=== PATIENT | female | born 1970 | race Two or more races ===

== ENCOUNTER → 2016-11-18 | Outpatient (REF) | payer OTHER | LOC: M SFHCLERA 17:06 | PROVIDERS: ATTEND Nurse Practitioner Family | DX: R35.0 Frequency of micturition (principal) ==

== ENCOUNTER → 2019-05-30 | Outpatient (REF) | payer OTHER ==
[2019-05-30 13:35] LABS: BASO # 0.1 10^3/uL (0.0-0.2); BASO % 0.7 % (0.0-1.0); EOS # 0.1 10^3/uL (0.0-0.5); EOS % 1.1 % (0.0-3.0); HEMATOCRIT 42.1 % (36.0-47.0); LYMPH % 28.9 % (24.0-44.0); MEAN CORPUSCULAR HEMOGLOBIN 32.5 pg (27.0-33.0); MEAN CORPUSCULAR HGB CONC 33.3 g/dl (32.0-36.5); MEAN CORPUSCULAR VOLUME 97.7 fl (80.0-96.0); MONO # 0.8 10^3/uL (0.0-0.8); MONO % 7.9 % (0.0-5.0); NEUTROPHILS # 6.3 10^3/uL (1.5-8.5); NEUTROPHILS % 61.1 % (36.0-66.0); PLATELET COUNT, AUTOMATED 329 10^3/uL (150-450); RED BLOOD COUNT 4.31 10^6/uL (4.00-5.40); WHITE BLOOD COUNT 10.3 10^3/uL (4.0-10.0)
[2019-05-30 13:47] LABS: ALBUMIN 3.5 GM/DL (3.2-5.2); ALT/SGPT 22 U/L (12-78); BILIRUBIN,TOTAL 0.3 MG/DL (0.2-1.0); BLOOD UREA NITROGEN 14 MG/DL (7-18); CALCIUM LEVEL 9.1 MG/DL (8.5-10.1); CARBON DIOXIDE LEVEL 27 MEQ/L (21-32); CHLORIDE LEVEL 108 MEQ/L (98-107); CHOLESTEROL LEVEL 198 MG/DL (<200); CREATININE FOR GFR 0.63 MG/DL (0.55-1.30); FREE T4 0.86 NG/DL (0.76-1.46); GLOMERULAR FILTRATION RATE > 60.0 (>51); GLUCOSE, FASTING 84 MG/DL (70-100); HDL CHOLESTEROL 38 MG/DL (>40); LDL CHOLESTEROL 84 MG/DL (<100); NON-HDL-C 160 MG/DL; POTASSIUM SERUM 4.3 MEQ/L (3.5-5.1); SODIUM LEVEL 143 MEQ/L (136-145); TOTAL PROTEIN 6.9 GM/DL (6.4-8.2); TRIGLYCERIDES LEVEL 378 MG/DL (<150)
== END ==
LOC: M LABDRWAD 12:12
PROVIDERS: ATTEND Physician Assistant
DX: Z13.29 Encounter for screening for other suspected endocrine disorder (principal); E03.9 Hypothyroidism, unspecified; Z13.220 Encounter for screening for lipoid disorders

== ENCOUNTER 2020-02-01 17:50 | Observation (INO) | payer OTHER ==
[~2020-02-01] VITALS: Ht 165.1 cm; Wt 111.6 kg
[2020-02-01] MEDS ORDERED: LEVO137T2 PO (17:58)
[2020-02-01] MEDS ORDERED: NS 1,000 ML IV ONE (18:30)
[2020-02-01 19:00] LABS: BASO # 0.1 10^3/uL (0.0-0.2); BASO % 0.5 % (0.0-1.0); EOS # 0.1 10^3/uL (0.0-0.5); EOS % 0.9 % (0.0-3.0); HEMATOCRIT 39.9 % (36.0-47.0); HEMOGLOBIN 13.5 g/dl (12.0-15.5); LYMPH # 2.7 10^3/uL (1.5-5.0); LYMPH % 25.2 % (24.0-44.0); MEAN CORPUSCULAR HEMOGLOBIN 31.3 pg (27.0-33.0); MEAN CORPUSCULAR HGB CONC 33.8 g/dl (32.0-36.5); MEAN CORPUSCULAR VOLUME 92.6 fl (80.0-96.0); MONO # 0.6 10^3/uL (0.0-0.8); MONO % 5.7 % (0.0-5.0); NEUTROPHILS # 7.1 10^3/uL (1.5-8.5); NEUTROPHILS % 67.3 % (36.0-66.0); PLATELET COUNT, AUTOMATED 300 10^3/uL (150-450); RED BLOOD COUNT 4.31 10^6/uL (4.00-5.40); WHITE BLOOD COUNT 10.6 10^3/uL (4.0-10.0)
[2020-02-01 19:20] LABS: INR 0.97; PARTIAL THROMBOPLASTIN TIME 30.1 SECONDS (25.0-38.4); PROTHROMBIN TIME 12.6 SECONDS (11.8-14.0)
[2020-02-01 19:30] LABS: ERYTHROCYTE SEDIMENTATION RATE 21 mm/hr (0-30)
[2020-02-01 19:33] LABS: ALBUMIN 3.7 GM/DL (3.2-5.2); ALT/SGPT 22 U/L (12-78); BILIRUBIN,DIRECT < 0.1 MG/DL (0.0-0.2); BILIRUBIN,TOTAL 0.3 MG/DL (0.2-1.0); C REACTIVE PROTEIN QUANTITATIV 0.32 MG/DL (0.00-0.30); FREE T4 1.29 NG/DL (0.76-1.46); LIPASE 60 U/L (73-393); NT-PRO BNP 49 PG/ML (<125); TOTAL PROTEIN 7.4 GM/DL (6.4-8.2)
[2020-02-01 20:31] LABS: D-DIMER QUANT 510.35 ng/ml (<500)
[2020-02-01] MEDS ORDERED: METOCLOPRAMIDE INJ 10MG/2ML VIAL (J2765 PER 1) As Ordered ONE (20:49)
[2020-02-01] MEDS ORDERED: ISOVUE-370 76% 100ML VIAL As Ordered ONE (20:56)
[2020-02-01] MEDS ORDERED: METOCLOPRAMIDE INJ 10MG/2ML VIAL (J2765 PER 1) IV ONE (21:00)
--- NOTE | 2020-02-01 21:42 | REPVR ---
PROCEDURE INFORMATION: Exam: CT Cervical Spine Without Contrast Exam date and time: 02/01/2020 9:25 PM Age: 49 years old Clinical indication: Other: Presyncope TECHNIQUE: Imaging protocol: Computed tomography images of the cervical spine without contrast. Axial, coronal and sagittal reformatted images were created and reviewed. Radiation optimization: All CT scans at this facility use at least one of these dose optimization techniques: automated exposure control; mA and/or kV adjustment per patient size (includes targeted exams where dose is matched to clinical indication); or iterative reconstruction. COMPARISON: No relevant prior studies available. FINDINGS: Vertebrae: Straightening of the normal cervical lordosis. Alignment anatomic. Mild dextroscoliosis. Congenital nonunion of the C1 posterior arch. No CT evidence of acute fracture, dislocation or subluxation. Vertebral body heights maintained. Discs/Spinal canal/Neural foramina: Intervertebral disc spaces preserved. No significant spinal canal or neural foraminal stenosis. Soft tissues: Grossly unremarkable. Lungs: Grossly unremarkable. IMPRESSION: 1. No CT evidence of acute cervical spine traumatic injury. 2. Additional findings, as above. Electronically signed by: Danny Shields On 02/01/2020 21:41:58 PM
--- NOTE | 2020-02-01 21:44 | REPVR ---
PROCEDURE INFORMATION: Exam: CT Head Without Contrast Exam date and time: 02/01/2020 9:25 PM Age: 49 years old Clinical indication: Other: Presyncope TECHNIQUE: Imaging protocol: Computed tomography of the head without contrast. Axial and coronal reformatted images were created and reviewed. Radiation optimization: All CT scans at this facility use at least one of these dose optimization techniques: automated exposure control; mA and/or kV adjustment per patient size (includes targeted exams where dose is matched to clinical indication); or iterative reconstruction. COMPARISON: No relevant prior studies available. FINDINGS: Brain: No CT evidence of acute intracranial hemorrhage or acute territorial infarction. No significant mass effect or midline shift. Basal cisterns patent. Ventricles: Normal in size and configuration. Bones/joints: No acute osseous abnormality. Sinuses: Grossly unremarkable. Mastoid air cells: Grossly unremarkable. Soft tissues: Grossly unremarkable. IMPRESSION: No CT evidence of acute intracranial pathology. Electronically signed by: Danny Shields On 02/01/2020 21:43:48 PM
--- NOTE | 2020-02-01 21:45 | REPVR ---
PROCEDURE INFORMATION: Exam: CT Angiography Chest With Contrast Exam date and time: 02/01/2020 9:25 PM Age: 49 years old Clinical indication: Other: Presyncope TECHNIQUE: Imaging protocol: Computed tomographic angiography of the chest with intravenous contrast. 3D rendering: MIP and/or 3D reconstructed images were created by the technologist. Radiation optimization: All CT scans at this facility use at least one of these dose optimization techniques: automated exposure control; mA and/or kV adjustment per patient size (includes targeted exams where dose is matched to clinical indication); or iterative reconstruction. Contrast material: ISOVUE 370; Contrast volume: 75 ml; Contrast route: IV; COMPARISON: CR PORTABLE CHEST X-RAY 02/01/2020 6:30 PM FINDINGS: Pulmonary arteries: Peripheral pulmonary artery evaluation limited by cardiac and respiratory motion artifact. Central pulmonary arteries show no intraluminal defect suggestive of clot. Aorta: No thoracic aortic aneurysm or dissection. Lungs: Pulmonary vascular/interstitial pattern does not suggest active pulmonary edema. No suspicious lung mass or air space process. No central endobronchial lesion. Pleural space: No pleural effusion or pneumothorax. Heart: Multi-chamber cardiac dilatation is noted. No evidence of acute pulmonary edema. Lymph nodes: No enlarged lymph nodes. Bones/joints: Bony structures show no acute fracture or destructive process. IMPRESSION: 1. No evidence of acute, central pulmonary embolus. Peripheral pulmonary arterial evaluation is limited by cardiac and respiratory motion artifact. 2. No other acute or concerning focal intrathoracic abnormality. 3. Cardiac enlargement without evidence of active pulmonary edema Electronically signed by: Yves De Leon On 02/01/2020 21:44:55 PM
[2020-02-01] MEDS ORDERED: CETI10CA2 PO (23:12)
[2020-02-01] MEDS ORDERED: ACETAMINOPHEN TAB 650MG DOSE (2X325MG) PO PRN (23:30)
[2020-02-01] MEDS ORDERED: DIVALPROEX 500MG *ER* TAB PO ONE (23:30)
[2020-02-01] MEDS ORDERED: NS 1,000 ML IV SCH (23:30)
[2020-02-01] MEDS ORDERED: ONDANSETRON 4MG/2ML VIAL IV PRN (23:30)
[2020-02-01] MEDS ORDERED: MECLIZINE 25 MG TABLET PO PRN (23:30)
--- NOTE | 2020-02-01 23:36 | HPEPDOC ---
General Date of Admission February 01, 2020 at 17:51 Date of Service: February 01, 2020 Chief Complaint The patient is a 49-year-old female admitted with a reason for visit of Pre Syncope. Source: Patient Exam Limitations: No limitations Timing/Duration: Other (few days) Severity: Other (, not applicable) Associated Symptoms: Other (or feeling of dizziness) History of Present Illness This is a 49 years old female with past medical history of hypothyroidism, had developed a feeling of dizziness and like writing on a roller coaster when she tries to lay down since last few days but today she also developed headache which is a pressure-like in nature present. Frontal and occipital area, no association with blurring of vision, nausea, vomiting, loss, or weakness of muscles or sensory system. . She was told by her primary care physician to come to ER if symptoms get worse, patient's headache has significantly resolved with metoclopramide and she is awaiting a MRA of brain and carotid and neurology consult. Dr. James has spoken with Dr. Hernández from neurology and he has recommended further workup as well as give patient Depakote ER 500 mg by mouth tonight Home Medications Scheduled Cetirizine HCl (ZyrTEC) 10 Mg Capsule, 10 MG PO DAILY, (Reported) Levothyroxine Sodium (Levothyroxine Sodium) 137 Mcg Tablet, 137 MCG PO DAILY, (Reported) Allergies Coded Allergies: No Known Allergies (Unverified , 02/01/20) Past Medical History Medical History Hypothyroidism Surgical History , Family History Family history reviewed, noncontributory Social History * Smoker: Denies Alcohol: Denies Drugs: denies A-FIB/CHADSVASC A-FIB History Current/History of A-Fib/PAF?: No Review of Systems Constitutional: Reports: Other Eyes: Denies: Pain, Vision change, Conjunctivae inflammation, Eyelid in flammation, Redness, Other ENT: Denies: Head Aches, Ear Pain, Dysphagia, Sinus Congestion, Post Nasal Drip, Sore Throat, Epistaxis, Other Symptoms Pulmonary: Denies: Dyspnea, Cough, Pleuritic Chest Pain, Other Symptoms Cardiovascular: Denies: Chest Pain, Palpitations, Orthopnea, Paroxysmal Noc. Dyspnea, Edema, Lt Headedness, Other Symptoms Gastrointestinal: Denies: Nausea, Vomiting, Abdominal Pain, Diarrhea, Constipation, Melena, Hematochezia, Other Symptoms Genitourinary: Denies: Dysuria, Frequency, Incontinence, Hematuria, Retention, Other Symptoms Musculoskeletal: Denies: Neck Pain, Back Pain, Shoulder Pain, Arm Pain, Hand Pain, Leg Pain, Foot Pain, Joint Pain, Muscle Pain, Spasms, Other Symptoms Neurological: Reports: Other Symptoms (. Dizziness) Psych: Denies: Mood Normal, Anxiety, Depression, Memory Issues, Thoughts of Self Harm, Anger, Thoughts of Harming Other, Other Psych Physical Examination General Exam: Positive: Alert, Cooperative Eye Exam: Positive: PERRLA, Conjunctiva & lids normal ENT Exam: Positive: Atraumatic Neck Exam: Positive: Supple Chest Exam: Positive: Clear to auscultation, Normal air movement Heart Exam: Positive: Rate Normal, Normal S1 Abdomen Exam: Positive: Normal bowel sounds, Soft Extremity Exam: Positive: Normal pulses Skin Exam: Positive: Nl turgor and temperature Neuro Exam: Positive: Strength at 5/5 X4 ext, Sensation Intact, Cranial Nerves 3-12 NL Psych Exam: Positive: Mood NL, Oriented x 3 Vital Signs Vital Signs Date Time Temp Pulse Resp B/P (MAP) Pulse Ox O2 Delivery O2 Flow Rate FiO2 02/01/20 22:45 132/60 (84) 02/01/20 22:36 77 17 97 Room Air 02/01/20 17:50 97.4 Laboratory Data Labs 24H Laboratory Tests 2 02/01/20 18:47: Immature Granulocyte % (Auto) 0.4, Neutrophils (%) (Auto) 67.3H, Lymphocytes (%) (Auto) 25.2, Monocytes (%) (Auto) 5.7H, Eosinophils (%) (Auto) 0.9, Basophils (%) (Auto) 0.5, Neutrophils # (Auto) 7.1, Lymphocytes # (Auto) 2.7, Monocytes # (Auto) 0.6, Eosinophils # (Auto) 0.1, Basophils # (Auto) 0.1, Nucleated Red Blood Cells % (auto) 0.0, Erythrocyte Sedimentation Rate 21, Prothrombin Time 12.6, Prothromb Time International Ratio 0.97, Activated Partial Thromboplast Time 30.1, D-Dimer, Quantitative 510.35H, Total Bilirubin 0.3, Direct Bilirubin < 0.1, Aspartate Amino Transf (AST/SGOT) 17, Alanine Aminotransferase (ALT/SGPT) 22, Alkaline Phosphatase 71, C-Reactive Protein, Quantitative 0.32H, GA-Aau-U-Type Natriuretic Peptide 49, Total Protein 7.4, Albumin 3.7, Albumin/Globulin Ratio 1.0L, Lipase 60L, Thyroid Stimulating Hormone (TSH) 2.120, Free Thyroxine 1.29 02/01/20 18:48: POC Glucose (Misc Panel) 92, POC Sodium (Misc Panel) 140, POC Potassium (Misc Panel) 3.5, POC Chloride (Misc Panel) 102, POC Total CO2 (Misc Panel) 24.0, POC Blood Urea Nitrogen (Misc Panel 9, POC Ionized Calcium (Misc Panel) 4.9, POC Creatinine (Misc Panel) 0.6, POC Hematocrit (Misc Panel) 42.0 02/01/20 18:50: POC Troponin I (Misc) 0.00 02/01/20 22:04: POC Troponin I (Misc) 0.00 CBC/BMP Laboratory Tests 02/01/20 18:47 Microbiology Microbiology 02/01/20 Blood Culture, Received Pending 02/01/20 Blood Culture, Received Pending Problems (1) Pre-syncope Status: Acute Problem Text: Presyncope and dizziness, most likely secondary to mild labyrinthitis Patient's CT of the head, CT of C-spine was essentially negative . She also had a CT of the chest which did not show any PE Chest x-ray normal. An EKG reviewed by me shows normal sinus rhythm, no acute ST-T changes Neurology has recommended MRA of brain, but since patient already had multiple CAT scans with contrast done. Hence, will defer to MRA of brain and carotids without contrast in a.m. Admit patient to [facility] with telemetry Follow MRA of brain and carotids. Once done Follow neurology recommendations. Once the official consult is done PT evaluation called for possible Pau maneuver IV hydration with normal saline 70 mL per hour , Antivert 25 mg by mouth twice a day when necessary for dizziness Continue home meds Diet regular Activity as tolerated DVT prophylaxis with Lovenox (2) Hypothyroid Status: Chronic Problem Text: Continue home medications Plan / VTE VTE Prophylaxis Ordered?: Yes BLACK RUBI MD February 01, 2020 23:36
[2020-02-02 00:15] VITALS: BP 143/81
--- NOTE | 2020-02-02 00:21 | ECGEPIP ---
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
[2020-02-02 06:00] VITALS: BP 121/71
[2020-02-02] MEDS ORDERED: LEVOTHYROXINE 137MCG TABLET (0.137MG) PO SCH (06:00)
[2020-02-02 06:41] LABS: HEMATOCRIT 35.6 % (36.0-47.0); HEMOGLOBIN 12.1 g/dl (12.0-15.5); MEAN CORPUSCULAR HEMOGLOBIN 31.8 pg (27.0-33.0); MEAN CORPUSCULAR VOLUME 93.4 fl (80.0-96.0); PLATELET COUNT, AUTOMATED 266 10^3/uL (150-450); RED BLOOD COUNT 3.81 10^6/uL (4.00-5.40); WHITE BLOOD COUNT 9.1 10^3/uL (4.0-10.0)
[2020-02-02 06:54] LABS: ALBUMIN 2.8 GM/DL (3.2-5.2); ALT/SGPT 19 U/L (12-78); BILIRUBIN,TOTAL 0.2 MG/DL (0.2-1.0); BLOOD UREA NITROGEN 9 MG/DL (7-18); CALCIUM LEVEL 8.1 MG/DL (8.5-10.1); CARBON DIOXIDE LEVEL 26 MEQ/L (21-32); CHLORIDE LEVEL 110 MEQ/L (98-107); CREATININE FOR GFR 0.59 MG/DL (0.55-1.30); GLOMERULAR FILTRATION RATE > 60.0 (>51); GLUCOSE, FASTING 110 MG/DL (70-100); MAGNESIUM LEVEL 2.1 MG/DL (1.8-2.4); POTASSIUM SERUM 3.9 MEQ/L (3.5-5.1); SODIUM LEVEL 143 MEQ/L (136-145); TOTAL PROTEIN 5.7 GM/DL (6.4-8.2)
[2020-02-02] MEDS ORDERED: ENOXAPARIN 40MG/0.4ML SYRINGE (J1650 PER 10MG) SC SCH (09:00)
[2020-02-02 09:24] LABS: CK-MB VALUE MASS 1.1 NG/ML (<3.6); CPK CREATINE PHOSPHOKINASE 95 U/L (26-192); MB/CK RELATIVE INDEX 1.16 (< OR =4); TROPONIN I < 0.02 NG/ML (< 0.10)
[2020-02-02 09:54] LABS: CHOLESTEROL LEVEL 151 MG/DL (<200); CHOLESTEROL RISK RATIO 5.033 (<5); HDL CHOLESTEROL 30 MG/DL (>40); LDL CHOLESTEROL 82 MG/DL (<100); NON-HDL-C 121 MG/DL; TRIGLYCERIDES LEVEL 196 MG/DL (<150)
[2020-02-02] MEDS ORDERED: METOCLOPRAMIDE INJ 10MG/2ML VIAL (J2765 PER 1) IV ONE ×2 (10:15→14:00)
[2020-02-02] MEDS ORDERED: KETOROLAC 30 MG/ML 1ML VIAL IV ONE (10:15)
[2020-02-02] MEDS ORDERED: FIORICET TAB PO PRN (10:30)
[2020-02-02] MEDS ORDERED: ACETAMINOPHEN *IV* 1,000 MG in IV 1 EA IV ONE (11:00)
[2020-02-02] MEDS ORDERED: RIZATRIPTAN BENZOATE 10 MG TAB PO ONE (11:00)
--- NOTE | 2020-02-02 12:29 | REPVR ---
PROCEDURE INFORMATION: Exam: MR Head Without Contrast Exam date and time: 02/02/2020 10:54 AM Age: 49 years old Clinical indication: Visual disturbance; Patient HX: Pre syncope; Additional info: R/O ms. Visual issues. H/a TECHNIQUE: Imaging protocol: MR of the head without contrast. 3D rendering: MIP and/or 3D reconstructed images were created by the technologist. COMPARISON: CT Head without contrast 02/01/2020 9:21 PM FINDINGS: Brain: Examination of the brain demonstrates normal morphology and signal intensity.No acute infarction, masses, midline shift or acute hemorrhage is seen. No acute intracranial abnormality is identified.There is no abnormal diffusion weighted signal intensity to suggest an acute ischemic event.The cortical campbell / white matter interfaces are preserved throughout the brain.Intracranial flow voids are well maintained.Examination of the posterior fossa demonstrates no significant abnormality.On gradient echo imaging, no susceptibility changes are seen to represent parenchymal calcification or degraded blood products. Ventricles: The ventricular system is not dilated and is appropriate for the patient's age. Bones/joints: Unremarkable. Sinuses: Normal as visualized. No acute sinusitis. Mastoid air cells: Normal as visualized. No mastoid effusion. Orbits: Unremarkable. Soft tissues: Unremarkable. IMPRESSION: No acute infarction, masses or hemorrhage is seen. No acute intracranial abnormality is identified. Electronically signed by: Lowell Spain On 02/02/2020 12:28:58 PM
--- NOTE | 2020-02-02 13:00 | REP ---
CHEST, SINGLE VIEW: Single view of the chest is performed. COMPARISON: 05/21/2016 I see no acute infiltrate. There is poor ventilation. Cardiomediastinal silhouette appears magnified. IMPRESSION: No evidence of acute pulmonary disease. Electronically Signed by Prabhu Thomas MD 02/02/2020 09:37 P
[2020-02-02] MEDS ORDERED: DEPA1TAB3 PO (14:08)
[2020-02-02] MEDS ORDERED: MAXA10TA14 PO (14:08)
[2020-02-02] MEDS ORDERED: DIVALPROEX 500 MG TAB PO SCH (21:00)
--- NOTE | 2020-02-03 13:20 | IPN ---
DATE: 02/02/2020 Patient still complains of a feeling of "roller coaster feeling" up and down, as well as a headache right behind the eye, ice pick like in nature, persistent for about 30 minutes now. Patient says that the Reglan give half dose yesterday worked slightly. She has no upper or lower extremity weakness, numbness, tingling sensation. No visual changes. She has had these episodes at home on and off about 3 or 4 times a week for the past [address] of the head was negative. MRI ordered to rule out multiple sclerosis and as part of a workup for complicated migraine. She otherwise does not have any other concerning signs and symptoms for any cerebellar CVA and no risk factors. The patient denies any chest pain, pressure, palpitations, lightheadedness or dizziness. She has been hydrating well. Telemetry shows sinus rhythm without signs of any tachy- or bradyarrhythmias. Temperature 97.9, pulse 91, respiratory rate 16, blood pressure 121/71, 94% on room air. Generally, patient is awake, alert, oriented, answering questions appropriately. No nystagmus, horizontal or vertical. The patient has no scotoma. Tongue is midline. Face is symmetric. No changes in sensation. No jugular venous distention (JVD) or thyromegaly. Lungs are clear to auscultation. No wheezing, rales or rhonchi. Heart: S1, S2, sinus rhythm. No murmurs, rubs, or gallops. Abdomen is obese, soft, nontender, nondistended. Positive bowel sounds times four quadrants. Extremities: No cyanosis, clubbing or pitting edema. Motor function is 5/5 times four extremities. Negative Babinski bilaterally. LABORATORY DATA: CBC, metabolic panel have been reviewed. TSH reviewed. Blood cultures negative. IMAGING STUDIES: CT of the head - no acute intracranial pathology. CT of the cervical spine - no traumatic injury. Mild dextroscoliosis, congenital nonunion of C1 posterior arch. CT chest - no pulmonary embolism (PE). There is cardiac enlargement without evidence of acute pulmonary edema. 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 Patient denies any scotoma, upper or lower extremity weakness or other paresthesias. No prior history of migraines, but has had similar episodes for the past 2 weeks. Patient is admitted for further workup. IMPRESSION: 1. Complicated migraine. At this time, the patient does not have risk factors for CVA with her complaints of headache along with visual changes and feeling of a roller coaster that lasts and alleviated by Tylenol at home. The patient will be tried on IV Toradol, Reglan, Depakote nightly per Dr. Hernández's recommendations. Will obtain an MRI of the brain to rule out multiple sclerosis and further evaluate for the headache. Patient would benefit from outpatient neurology workup and followup. At this time, due to not having any cardiac or ischemic history, she will be given triptan subcutaneously if persistent, on Maxalt and Fioricet. 2. Abnormal EKG with cardiac enlargement on CT chest. Patient has abnormal EKG. Would obtain echocardiogram, rule out valvular disorder. Outpatient stress testing due to risk factors for ischemic heart disease. 3. Allergic rhinitis. May continue on home dose of Zyrtec. 4. Hypothyroidism. Thyroid-stimulating hormone (TSH) is normal. May continue on home dose of Synthroid. DISPOSITION: If MRI of the brain is negative and echo is negative, patient may be discharged home with outpatient followup with Dr. Hernández, Neurology, for workup and management of complicated migraine, as well as referral to cardiology for a stress test due to abnormal EKG and cardiomegaly noted on CT chest. [facility]
--- NOTE | 2020-02-03 15:03 | ECHO ---
DATE OF PROCEDURE: 02/02/2020 INDICATION: Syncope. REFERRING PHYSICIAN: Dr. Suárez Height: 165 cm Weight: 112 kg DIMENSIONS: Aorta: 3.4 LA: 3.9 IVS: 0.9 LV: 4.5 LVPW: 0.9 IVC: 1.9 Mitral E wave velocity: 71 A wave: 55 E prime septal: 8.1 E prime lateral: 11.6 FINDINGS: The study is of acceptable technical quality. The patient is in sinus rhythm. Normal left ventricular (LV) size and systolic function, estimated left ventricular ejection fraction (LVEF) 60-65%. No segmental wall motion abnormalities are appreciated. Right ventricle is also normal size and systolic function. Both atria appear normal. All four cardiac valves were well seen and appear normal. No pericardial effusion is noted. Inferior vena cava is on upper limits of normal size. Aortic root and aortic arch appear normal. Abdominal aorta was not well visualized. Doppler interrogation reveals competent aortic, mitral and pulmonic valves. There is trace tricuspid insufficiency. Calculated pulmonary artery pressure is within normal limits. Mitral inflow pattern and tissue Doppler imaging of mitral annulus reveal normal diastolic function. CONCLUSIONS: 1. Normal LV size, systolic and diastolic function. 2. No significant valvular disease. 3. Likely normal central venous pressure and normal pulmonary artery pressure. 4. Essentially normal echocardiogram. [facility]
--- NOTE | 2020-02-03 15:24 | DS.PDOC ---
Discharge Summary General Date of Admission February 01, 2020 at 17:51 Date of Discharge February 02, 2020 Discharge Summary DISCHARGE DIAGNOSES: Complicated Migraine with Aura Obesity BMI 40.9 Hypertriglyceridemia Hypothyroidism Abnormal EKG DISCHARGE MEDICATIONS:see below DISCHARGE INSTRUCTIONS: fu with Dr. Hernández re: mgt migraine/prophylaxis, fu w pcp.pcp to refer for stress test for abnormal EKG. 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 Patient denies any scotoma, upper or lower extremity weakness or other paresthesias. No prior history of migraines, but has had similar episodes for the past 2 weeks. Patient is admitted for further workup. Complicated migraine. At this time, the patient does not have risk factors for CVA with her complaints of headache along with visual changes and feeling of a roller coaster that lasts and alleviated by Tylenol at home. The patient was tried on IV Toradol, Reglan, Depakote nightly per Dr. Hernández's recommendations. CT head / Ct angio negative. Ct chest for presyncope negative for PE. MRI of the brain negative for MS, CVA. Patient would benefit from outpatient neurology workup for possible partial focal seizures and followup and migraine management and prophylaxis. PRN maxalt. Abnormal EKG with cardiac enlargement on CT chest. Patient has abnormal EKG. normal echocardiogram. Tele sinus no arrhythmias. Allergic rhinitis. May continue on home dose of Zyrtec. Hypothyroidism. Thyroid-stimulating hormone (TSH) is normal. May continue on home dose of Synthroid. DISCHARGE PHYSICAL EXAMINATION: ing questions appropriately. No nystagmus, horizontal or vertical. The patient has no scotoma. Tongue is midline. Face is symmetric. No changes in sensation. No jugular venous distention (JVD) or thyromegaly. Lungs are clear to auscultation. No wheezing, rales or rhonchi. Heart: S1, S2, sinus rhythm. No murmurs, rubs, or gallops. Abdomen is obese, soft, nontender, nondistended. Positive bowel sounds times four quadrants. Extremities: No cyanosis, clubbing or pitting edema. Motor function is 5/5 times four extremities. Negative Babinski bilaterally. LABORATORY DATA: see below IMAGING STUDIES: CT of the head - no acute intracranial pathology. CT of the cervical spine - no traumatic injury. Mild dextroscoliosis, congenital nonunion of C1 posterior arch. CT chest - no pulmonary embolism (PE). There is cardiac enlargement without evidence of acute pulmonary edema. ECHOCARDIOGRAM-Dr. Castro Normal left ventricular (LV) size and systolic function, estimated left ventricular ejection fraction (LVEF) 60-65%. No segmental wall motion abnormalities are appreciated. Right ventricle is also normal size and systolic function. Both atria appear normal. All four cardiac valves were well seen and appear normal. No pericardial effusion is noted. Inferior vena cava is on upper limits of normal size. Aortic root and aortic arch appear normal. Abdominal aorta was not well visualized. Doppler interrogation reveals competent aortic mitral and pulmonic valves. There is trace tricuspid insufficiency. Calculated pulmonary artery pressure is within normal limits. Mitral inflow pattern and tissue Doppler imaging of mitral annulus reveal normal diastolic function. CONCLUSIONS: 1. Normal LV size, systolic and diastolic function. 2. No significant valvular disease. 3. Likely normal central venous pressure and normal pulmonary artery pressure. 4. Essentially normal echocardiogram. TIME SPENT ON DISCHARGE: 30MIN. Vital Signs/I&Os Vital Signs Date Time Temp Pulse Resp B/P (MAP) Pulse Ox O2 Delivery O2 Flow Rate FiO2 02/02/20 06:00 97.9 91 16 121/71 (88) 94 Room Air I&O- Last 24 Hours up to 6 AM 02/03/20 06:00 Intake Total 530 ml Balance 530 ml Microbiology Microbiology 02/01/20 Blood Culture - Preliminary, Resulted No growth after 24 hours . All specim... 02/01/20 Blood Culture - Preliminary, Resulted No growth after 24 hours . All specim... Discharge Medications Scheduled Cetirizine HCl (ZyrTEC) 10 Mg Capsule, 10 MG PO DAILY, (Reported) Divalproex Sodium (Depakote) 500 Mg Tablet.dr, 500 MG PO QHS Levothyroxine Sodium (Levothyroxine Sodium) 137 Mcg Tablet, 137 MCG PO DAILY, (Reported) Rizatriptan Benzoate (Maxalt) 10 Mg Tablet, 1 TAB PO ASDIRECTED for headache Allergies Coded Allergies: No Known Allergies (Unverified , 02/01/20) RENEA RENNER MD February 03, 2020 15:15
--- NOTE | 2020-02-03 19:39 | ECGEPIP ---
[facility] - ED Test Date: 2020-02-01 Pat Name: HERVE BRISCOE Department: Room: [place] [address] Gender: Female Line Pilot: taz : 1970 Requested By: FORREST Sage Order Number: [id number] Reading MD: Aubree Mcgill Measurements Intervals Gray Rate: 77 P: -1 TX: 182 QRS: -11 QRSD: 98 T: 9 QT: 401 QTc: 454 Interpretive Statements SINUS RHYTHM MODERATE VOLTAGE CRITERIA FOR LVH, CONSIDER NORMAL VARIANT SIMILAR 02/01/20 Electronically Signed on 02-03-2020 19:39:11 EDT by Aubree Mcgill
== END 2020-02-02 14:57 | disposition home or self-care (01) ==
LOC: M ED 17:50 → M ED INP 17:51 → ENRESERV 23:27 → M MSPAV 02-02 00:10
PROVIDERS: ADMIT Internal Medicine; ATTEND General Practice
DX: G43.109 Migraine with aura, not intractable, without status migrainosus (principal); E66.9 Obesity, unspecified; E78.2 Mixed hyperlipidemia; E03.9 Hypothyroidism, unspecified; R94.31 Abnormal electrocardiogram [ECG] [EKG]; J30.9 Allergic rhinitis, unspecified; Z79.899 Other long term (current) drug therapy
CPT/HCPCS: 36415; 70450; 70551; 71045; 71275; 72125; 80047; 80053; 80061; 80076; 82550; 82553; 83690; 83735; 83880; 84439; 84443; 84484; 85025; 85027; 85379; 85610; 85652; 85730; 86140; 87040; 93005; 93041; 93306; 94760; 96361; 96374; 96375; 97161; 99285; J1885; J2765; Q9967

== ENCOUNTER → 2020-07-11 | Outpatient (CLI) | payer OTHER ==
[~2020-07-11] MED LIST: CETI10CA2 PO; DEPA1TAB3 PO; LEVO137T2 PO; MAXA10TA14 PO
--- NOTE | 2020-07-11 16:26 | REP ---
INDICATION: PELVIC PAIN W/ BLOATING IRREGULAR MENSES. COMPARISON: None. TECHNIQUE: Transabdominal and transvaginal scanning performed. FINDINGS: Uterine dimensions are 9.6 x 5.6 x 7.2 cm. Endometrial echo is 17 mm thick and centrally placed. The bladder measures 11.0 x 5.0 x 8.9 cm. The right ovary has dimensions of 5.2 x 3.6 x 4.1 cm. It demonstrates normal Doppler flow with resistive index of 0.59. A small simple cyst in the right ovary measures 2.8 x 2.3 x 2.5 cm. The left ovary dimensions are 3.2 x 3.0 x 2.9 cm. The left ovary demonstrates internal venous flow . There is no adnexal mass identified. No free fluid is seen in the cul-de-sac. IMPRESSION: Prominent endometrial thickness at 17 mm in AP dimension. No endometrial fluid collection. Simple cyst right ovary 2.8 cm. No other evidence of adnexal mass or free fluid. No torsion. <Electronically signed by Prabhu Thomas > 07/11/20 [id number]
== END ==
LOC: M RAD 13:54
PROVIDERS: ATTEND Family Medicine
DX: R10.2 Pelvic and perineal pain (principal); N93.9 Abnormal uterine and vaginal bleeding, unspecified

== ENCOUNTER → 2020-07-29 | Outpatient (CLI) | payer OTHER ==
[2020-07-29 11:56] LABS: AMYLASE 25 U/L (25-115); LIPASE 89 U/L (73-393)
[2020-07-30 12:07] LABS: TISSUE TRANSGLUTAMINASE IgA <2 U/mL (0-3); TISSUE TRANSGLUTAMINASE IgG <2 U/mL (0-5); UNITSIGA FOR GLIADIN IGA 5 units (0-19); UNITSIGG FOR GLIADIN IGG 3 units (0-19)
== END ==
LOC: M LAB 00:03
PROVIDERS: ATTEND Family Medicine
DX: R14.0 Abdominal distension (gaseous) (principal); R10.2 Pelvic and perineal pain

== ENCOUNTER → 2022-05-17 | Outpatient (CLI) | payer OTHER ==
[~2022-05-17] MED LIST changes: -MAXA10TA14 PO; +RIZA10TA64 PO
== END ==
LOC: M WHC 08:01
PROVIDERS: ATTEND Physician Assistant
DX: Z12.31 Encounter for screening mammogram for malignant neoplasm of breast (principal)

== ENCOUNTER → 2022-05-17 | Outpatient (CLI) | payer OTHER ==
[2022-05-17 10:29] LABS: BASO # 0.1 10^3/uL (0.0-0.2); BASO % 0.8 % (0.0-1.0); EOS # 0.2 10^3/uL (0.0-0.5); EOS % 2.6 % (0.0-3.0); HEMATOCRIT 41.5 % (36.0-47.0); HEMOGLOBIN 13.9 g/dl (12.0-15.5); LYMPH # 2.5 10^3/uL (1.5-5.0); LYMPH % 29.6 % (24.0-44.0); MEAN CORPUSCULAR HEMOGLOBIN 31.8 pg (27.0-33.0); MEAN CORPUSCULAR HGB CONC 33.5 g/dl (32.0-36.5); MONO # 0.6 10^3/uL (0.0-0.8); MONO % 7.5 % (2.0-8.0); NEUTROPHILS # 4.9 10^3/uL (1.5-8.5); PLATELET COUNT, AUTOMATED 267 10^3/uL (150-450); RED BLOOD COUNT 4.37 10^6/uL (4.00-5.40); WHITE BLOOD COUNT 8.4 10^3/uL (4.0-10.0)
[2022-05-17 11:25] LABS: ALBUMIN 3.5 GM/DL (3.2-5.2); ALT/SGPT 29 U/L (12-78); BILIRUBIN,TOTAL 0.4 MG/DL (0.2-1.0); BLOOD UREA NITROGEN 10 MG/DL (7-18); CALCIUM LEVEL 9.2 MG/DL (8.5-10.1); CARBON DIOXIDE LEVEL 29 MEQ/L (21-32); CHLORIDE LEVEL 108 MEQ/L (98-107); CHOLESTEROL LEVEL 221 MG/DL (<200); CHOLESTEROL RISK RATIO 4.169 (<5); CREATININE FOR GFR 0.58 MG/DL (0.55-1.30); FREE T4 1.12 NG/DL (0.76-1.46); GLOMERULAR FILTRATION RATE > 60.0 (>51); GLUCOSE, FASTING 95 MG/DL (70-100); HDL CHOLESTEROL 53 MG/DL (>40); LDL CHOLESTEROL 134 MG/DL (<100); NON-HDL-C 168 MG/DL; SODIUM LEVEL 139 MEQ/L (136-145); TOTAL PROTEIN 6.9 GM/DL (6.4-8.2); TRIGLYCERIDES LEVEL 170 MG/DL (<150)
[2022-05-17 12:04] LABS: TOTAL 25(OH) VITAMIN D 20.2 NG/ML (30.0-100.0)
[2022-05-17 15:32] LABS: HEMOGLOBIN A1c 5.7 %
== END ==
LOC: M PLALAB 09:08
PROVIDERS: ATTEND Physician Assistant
DX: Z13.29 Encounter for screening for other suspected endocrine disorder (principal)

== ENCOUNTER 2023-01-07 19:13 | Inpatient (IN) | payer OTHER ==
[~2023-01-07] VITALS: Ht 167.6 cm; Wt 102.3 kg
[2023-01-07] MEDS ORDERED: ONDANSETRON 4MG 2ML VIAL IV ONE (19:40)
[2023-01-07] MEDS: MORPHINE 4 MG/ML 1ML VIAL IV PRN ×2 (19:48→20:48)
[2023-01-07] MEDS ORDERED: NS 1,000 ML IV SCH (22:00)
[2023-01-07] MEDS ORDERED: KETAMINE HCL 200MG/20ML VIAL IV ONE (22:00)
[2023-01-07] MEDS ORDERED: METOCLOPRAMIDE INJ 10MG/2ML VIAL IV ONE (22:30)
[2023-01-07] MEDS: propofoL 200 MG/20 ML VIAL IV.PROC PRN ×3 (22:35→22:47)
[2023-01-08] MEDS ORDERED: ZYRT10TA12 PO (00:05)
[2023-01-08] MEDS ORDERED: HOME MED LIST COMPLETE! XX SCH (00:05)
[2023-01-08 00:16] LABS: BASO # 0.1 10^3/uL (0.0-0.2); BASO % 0.4 % (0.0-1.0); EOS % 0.1 % (0.0-3.0); HEMOGLOBIN 15.1 g/dl (12.0-15.5); LYMPH # 1.1 10^3/uL (1.5-5.0); LYMPH % 6.9 % (24.0-44.0); MEAN CORPUSCULAR HEMOGLOBIN 31.2 pg (27.0-33.0); MEAN CORPUSCULAR HGB CONC 32.8 g/dl (32.0-36.5); MONO # 0.5 10^3/uL (0.0-0.8); MONO % 3.2 % (2.0-8.0); NEUTROPHILS # 14.7 10^3/uL (1.5-8.5); PLATELET COUNT, AUTOMATED 247 10^3/uL (150-450); RED BLOOD COUNT 4.84 10^6/uL (4.00-5.40); WHITE BLOOD COUNT 16.4 10^3/uL (4.0-10.0)
[2023-01-08 00:24] LABS: BLOOD UREA NITROGEN 14 MG/DL (9-23); CALCIUM LEVEL 8.5 MG/DL (8.5-10.1); CARBON DIOXIDE LEVEL 22 MMOL/L (20-31); CHLORIDE LEVEL 108 MMOL/L (98-107); CREATININE FOR GFR 0.55 MG/DL (0.55-1.30); GLOMERULAR FILTRATION RATE > 60.0 (>51); GLUCOSE, FASTING 99 MG/DL (60-100); POTASSIUM SERUM 4.3 MMOL/L (3.5-5.1); SODIUM LEVEL 141 MMOL/L (136-145)
[2023-01-08 00:50] VITALS: BP 159/78
[2023-01-08] MEDS ORDERED: ONDANSETRON 4MG 2ML VIAL IV PRN (01:40)
[2023-01-08] MEDS ORDERED: MORPHINE 2 MG/ML 1ML VIAL IV PRN (01:40)
[2023-01-08] MEDS: CETIRIZINE (ZyrTEC) 10 MG TAB PO SCH ×2 (02:11→20:43)
[2023-01-08] MEDS: LEVOTHYROXINE 137MCG TABLET (0.137MG) PO SCH (05:37)
[2023-01-08] MEDS: PERCOCET 5MG/325MG TAB PO PRN ×3 (05:43→18:39)
[2023-01-08 06:00] VITALS: BP 128/64
[2023-01-08 06:42] LABS: HEMATOCRIT 37.6 % (36.0-47.0); MEAN CORPUSCULAR HEMOGLOBIN 31.8 pg (27.0-33.0); MEAN CORPUSCULAR HGB CONC 34.3 g/dl (32.0-36.5); MEAN CORPUSCULAR VOLUME 92.6 fl (80.0-96.0); PLATELET COUNT, AUTOMATED 242 10^3/uL (150-450); RED BLOOD COUNT 4.06 10^6/uL (4.00-5.40); WHITE BLOOD COUNT 12.2 10^3/uL (4.0-10.0)
[2023-01-08 06:43] LABS: HEMOGLOBIN 12.9 g/dl (12.0-15.5)
[2023-01-08 06:58] LABS: BLOOD UREA NITROGEN 9 MG/DL (9-23); CALCIUM LEVEL 8.3 MG/DL (8.5-10.1); CARBON DIOXIDE LEVEL 24 MMOL/L (20-31); CHLORIDE LEVEL 106 MMOL/L (98-107); CREATININE FOR GFR 0.45 MG/DL (0.55-1.30); GLOMERULAR FILTRATION RATE > 60.0 (>51); GLUCOSE, FASTING 94 MG/DL (60-100); POTASSIUM SERUM 4.1 MMOL/L (3.5-5.1); SODIUM LEVEL 140 MMOL/L (136-145)
[2023-01-08] MEDS: ACETAMINOPHEN TAB 650MG DOSE (2X325MG) PO PRN (10:43)
[2023-01-08 14:00] VITALS: BP 150/71
[2023-01-08] MEDS: HEPARIN SOD (PORCINE) 5000UNITS/ML 1ML VIAL/SYRINGE SQ SCH (20:43)
[2023-01-08 22:00] VITALS: BP 143/69
[2023-01-09] VITALS (9 sets, daily range): BP systolic 152–201; BP diastolic 72–99
[2023-01-09] MEDS: PERCOCET 5MG/325MG TAB PO PRN ×3 (02:21→22:03)
[2023-01-09] MEDS: HEPARIN SOD (PORCINE) 5000UNITS/ML 1ML VIAL/SYRINGE SQ SCH ×3 (06:00→21:05)
[2023-01-09] MEDS: LEVOTHYROXINE 137MCG TABLET (0.137MG) PO SCH (06:29)
[2023-01-09 07:42] LABS: HEMATOCRIT 40.7 % (36.0-47.0); HEMOGLOBIN 13.5 g/dl (12.0-15.5); MEAN CORPUSCULAR HEMOGLOBIN 31.3 pg (27.0-33.0); MEAN CORPUSCULAR HGB CONC 33.2 g/dl (32.0-36.5); MEAN CORPUSCULAR VOLUME 94.2 fl (80.0-96.0); PLATELET COUNT, AUTOMATED 229 10^3/uL (150-450); RED BLOOD COUNT 4.32 10^6/uL (4.00-5.40); WHITE BLOOD COUNT 10.4 10^3/uL (4.0-10.0)
[2023-01-09 08:32] LABS: BLOOD UREA NITROGEN 9 MG/DL (9-23); CALCIUM LEVEL 8.1 MG/DL (8.5-10.1); CARBON DIOXIDE LEVEL 25 MMOL/L (20-31); CHLORIDE LEVEL 107 MMOL/L (98-107); CREATININE FOR GFR 0.54 MG/DL (0.55-1.30); GLOMERULAR FILTRATION RATE > 60.0 (>51); GLUCOSE, FASTING 102 MG/DL (60-100); MAGNESIUM LEVEL 1.8 MG/DL (1.8-2.4); PHOSPHORUS LEVEL 2.7 MG/DL (2.5-4.9); SODIUM LEVEL 141 MMOL/L (136-145)
[2023-01-09] MEDS ORDERED: TRANEXAMIC ACID 100 MG/ML 10ML VIAL As Ordered ONE (08:36)
[2023-01-09] MEDS ORDERED: ROCURONIUM BROMIDE 50MG/5ML VIAL As Ordered ONE ×2 (09:23→09:26)
[2023-01-09] MEDS ORDERED: MIDAZOLAM INJ 2MG/2ML VIAL As Ordered ONE (09:23)
[2023-01-09] MEDS ORDERED: propofoL 200 MG/20 ML VIAL As Ordered ONE (09:23)
[2023-01-09] MEDS ORDERED: ePHEDrine SULFATE 25 MG/5 ML(5MG/ML) SYRINGE As Ordered ONE (09:23)
[2023-01-09] MEDS ORDERED: fentaNYL 100 MCG/2 ML INJECTION As Ordered ONE (09:23)
[2023-01-09] MEDS ORDERED: ACETAMINOPHEN 1000MG 100ML IV BAG As Ordered ONE (09:23)
[2023-01-09] MEDS ORDERED: HYDROmorphone HCL 2MG/ML 1ML VIAL As Ordered ONE (09:23)
[2023-01-09] MEDS ORDERED: ONDANSETRON 4MG 2ML VIAL As Ordered ONE (09:23)
[2023-01-09] MEDS ORDERED: LIDOCAINE 2% 100MG/5ML SDV (FOR ANES.) As Ordered ONE (09:23)
[2023-01-09] MEDS ORDERED: ceFAZolin 2 GM/D5W 50 ML IV BAG IV ONE (09:39)
[2023-01-09] MEDS ORDERED: VANCOMYCIN 1000MG/20ML VIAL As Ordered ONE (10:14)
[2023-01-09] MEDS ORDERED: SUGAMMADEX SODIUM 500 MG/5 ML VIAL (BRIDION) As Ordered ONE (10:30)
[2023-01-09] MEDS ORDERED: ONDANSETRON 4MG 2ML VIAL IV PRN (10:45)
[2023-01-09] MEDS ORDERED: fentaNYL 100 MCG/2 ML INJECTION IV PRN (10:45)
[2023-01-09] MEDS ORDERED: LR 1,000 ML IV SCH ×2 (10:45→15:35)
[2023-01-09] MEDS: HYDROMORPHONE HCL 0.5 MG/ 0.5 ML SYRINGE IV PRN ×2 (11:26→11:31)
[2023-01-09] MEDS: oxyCODONE 5MG TAB PO PRN ×2 (11:33→12:03)
[2023-01-09] MEDS ORDERED: LABETALOL 100MG/20ML VIAL IV PRN (11:40)
[2023-01-09] MEDS ORDERED: LABETALOL 100MG/20ML VIAL As Ordered ONE (11:41)
[2023-01-09] MEDS ORDERED: amLODIPine 5 MG TAB PO ONE (17:00)
[2023-01-09] MEDS ORDERED: VALSARTAN 40MG TABLET (DIOVAN) PO SCH (21:00)
[2023-01-09] MEDS ORDERED: KETOROLAC 30 MG/ML 1ML VIAL IV ONE (21:00)
[2023-01-09] MEDS: amLODIPine 5 MG TAB PO SCH ×2 (21:00→21:04)
[2023-01-09] MEDS: CETIRIZINE (ZyrTEC) 10 MG TAB PO SCH (21:03)
[2023-01-10] VITALS (8 sets, daily range): BP systolic 145–175; BP diastolic 74–85
[2023-01-10] MEDS: HEPARIN SOD (PORCINE) 5000UNITS/ML 1ML VIAL/SYRINGE SQ SCH ×3 (05:17→20:10)
[2023-01-10] MEDS: LEVOTHYROXINE 137MCG TABLET (0.137MG) PO SCH (05:18)
[2023-01-10] MEDS: PERCOCET 5MG/325MG TAB PO PRN ×2 (05:19→23:00)
[2023-01-10 06:40] LABS: HEMATOCRIT 39.9 % (36.0-47.0); HEMOGLOBIN 12.9 g/dl (12.0-15.5); MEAN CORPUSCULAR HEMOGLOBIN 30.8 pg (27.0-33.0); MEAN CORPUSCULAR HGB CONC 32.3 g/dl (32.0-36.5); MEAN CORPUSCULAR VOLUME 95.2 fl (80.0-96.0); PLATELET COUNT, AUTOMATED 201 10^3/uL (150-450); RED BLOOD COUNT 4.19 10^6/uL (4.00-5.40); WHITE BLOOD COUNT 10.5 10^3/uL (4.0-10.0)
[2023-01-10] MEDS ORDERED: hydrALAZINE 20MG/ML 1ML VIAL IV PRN (06:45)
[2023-01-10 07:10] LABS: BLOOD UREA NITROGEN 8 MG/DL (9-23); CALCIUM LEVEL 8.7 MG/DL (8.5-10.1); CARBON DIOXIDE LEVEL 28 MMOL/L (20-31); CHLORIDE LEVEL 105 MMOL/L (98-107); CREATININE FOR GFR 0.54 MG/DL (0.55-1.30); GLOMERULAR FILTRATION RATE > 60.0 (>51); GLUCOSE, FASTING 119 MG/DL (60-100); MAGNESIUM LEVEL 1.7 MG/DL (1.8-2.4); PHOSPHORUS LEVEL 3.1 MG/DL (2.5-4.9); POTASSIUM SERUM 3.9 MMOL/L (3.5-5.1); SODIUM LEVEL 139 MMOL/L (136-145)
[2023-01-10] MEDS: MAG SULF 1GM/100ML (MAG RUN) 1 GM in IV 1 EA IV SCH ×2 (08:29→10:03)
[2023-01-10] MEDS ORDERED: amLODIPine 5 MG TAB PO SCH (09:00)
[2023-01-10] MEDS ORDERED: BUPIVACAINE/EPIN 0.25% 30ML VIAL As Ordered ONE (10:37)
[2023-01-10] MEDS ORDERED: LIDOCAINE W/EPINEPHRINE 1% 20ML VIAL As Ordered ONE (11:03)
[2023-01-10] MEDS ORDERED: TRANEXAMIC ACID 100 MG/ML 10ML VIAL As Ordered ONE (11:03)
[2023-01-10] MEDS ORDERED: ceFAZolin 2 GM/D5W 50 ML IV BAG As Ordered ONE (11:04)
[2023-01-10] MEDS ORDERED: ACETAMINOPHEN 1000MG 100ML IV BAG As Ordered ONE (11:09)
[2023-01-10] MEDS ORDERED: SUGAMMADEX SODIUM 500 MG/5 ML VIAL (BRIDION) As Ordered ONE (11:39)
[2023-01-10] MEDS ORDERED: KETOROLAC 60MG 2ML VIAL As Ordered ONE (11:39)
[2023-01-10] MEDS ORDERED: propofoL 200 MG/20 ML VIAL As Ordered ONE (11:45)
[2023-01-10] MEDS ORDERED: LIDOCAINE 2% 100MG/5ML SDV (FOR ANES.) As Ordered ONE (11:45)
[2023-01-10] MEDS ORDERED: MIDAZOLAM INJ 2MG/2ML VIAL As Ordered ONE (11:45)
[2023-01-10] MEDS ORDERED: fentaNYL 100 MCG/2 ML INJECTION As Ordered ONE ×2 (11:45→11:46)
[2023-01-10] MEDS ORDERED: ONDANSETRON 4MG 2ML VIAL As Ordered ONE (11:45)
[2023-01-10] MEDS ORDERED: ROCURONIUM BROMIDE 50MG/5ML VIAL As Ordered ONE ×2 (11:45→12:00)
[2023-01-10 13:45] LABS: TOTAL 25(OH) VITAMIN D 24.2 NG/ML (20.0-100.0)
[2023-01-10] MEDS ORDERED: VANCOMYCIN 1000MG/20ML VIAL As Ordered ONE (13:57)
[2023-01-10] MEDS ORDERED: PHENYLephrine 500MCG 5ML (100MCG/ML) SYRINGE As Ordered ONE (14:11)
[2023-01-10] MEDS ORDERED: BUPIVACAINE LIPOSOME/PF 1.3% 20ML VIAL (13.3MG/ML)(EXPAREL) As Ordered ONE (14:29)
[2023-01-10] MEDS ORDERED: MORPHINE 2 MG/ML 1ML VIAL IV PRN (14:35)
[2023-01-10] MEDS ORDERED: ONDANSETRON 4MG 2ML VIAL IV PRN (14:35)
[2023-01-10] MEDS: oxyCODONE 5MG TAB PO PRN ×2 (15:10→15:41)
[2023-01-10] MEDS: fentaNYL 100 MCG/2 ML INJECTION IV PRN ×4 (15:11→15:36)
[2023-01-10] MEDS: VITAMIN D 1,000 INTERNATIONAL UNITS TABLET PO SCH (17:11)
[2023-01-10] MEDS: CETIRIZINE (ZyrTEC) 10 MG TAB PO SCH (19:59)
[2023-01-11 01:31] VITALS: BP 167/82
[2023-01-11 05:34] VITALS: BP 164/69
[2023-01-11] MEDS: LEVOTHYROXINE 137MCG TABLET (0.137MG) PO SCH (05:49)
[2023-01-11] MEDS: PERCOCET 5MG/325MG TAB PO PRN ×3 (05:49→20:22)
[2023-01-11] MEDS: HEPARIN SOD (PORCINE) 5000UNITS/ML 1ML VIAL/SYRINGE SQ SCH ×3 (05:49→21:52)
[2023-01-11 06:30] LABS: HEMATOCRIT 36.6 % (36.0-47.0); MEAN CORPUSCULAR HEMOGLOBIN 31.3 pg (27.0-33.0); MEAN CORPUSCULAR HGB CONC 32.8 g/dl (32.0-36.5); MEAN CORPUSCULAR VOLUME 95.3 fl (80.0-96.0); PLATELET COUNT, AUTOMATED 249 10^3/uL (150-450); RED BLOOD COUNT 3.84 10^6/uL (4.00-5.40); WHITE BLOOD COUNT 10.9 10^3/uL (4.0-10.0)
[2023-01-11 06:44] LABS: BLOOD UREA NITROGEN 10 MG/DL (9-23); CALCIUM LEVEL 8.1 MG/DL (8.5-10.1); CARBON DIOXIDE LEVEL 26 MMOL/L (20-31); CHLORIDE LEVEL 106 MMOL/L (98-107); CREATININE FOR GFR 0.47 MG/DL (0.55-1.30); GLOMERULAR FILTRATION RATE > 60.0 (>51); GLUCOSE, FASTING 122 MG/DL (60-100); SODIUM LEVEL 138 MMOL/L (136-145)
[2023-01-11 07:32] VITALS: BP 160/69
[2023-01-11] MEDS: ASPIRIN 81MG ENTERIC TABLET PO SCH (08:29)
[2023-01-11] MEDS: VITAMIN D 1,000 INTERNATIONAL UNITS TABLET PO SCH (08:29)
[2023-01-11 09:58] VITALS: BP 158/69
[2023-01-11] MEDS ORDERED: ACET1TAB55 PO (12:26)
[2023-01-11] MEDS ORDERED: VITAD1000T PO (12:26)
[2023-01-11] MEDS ORDERED: PERCOCET PO (12:26)
[2023-01-11] MEDS ORDERED: AMLO1TAB25 PO (12:26)
[2023-01-11] MEDS ORDERED: ASPI81TAEC PO (12:26)
[2023-01-11 14:00] VITALS: BP 160/70
[2023-01-11] MEDS: MIRALAX *UNIT DOSE* 17GM PACKET PO SCH (14:00)
[2023-01-11] MEDS: DOCUSATE SODIUM 100MG CAPSULE PO SCH ×2 (14:48→20:21)
[2023-01-11 19:29] VITALS: BP 157/71
[2023-01-11] MEDS: CETIRIZINE (ZyrTEC) 10 MG TAB PO SCH (20:21)
[2023-01-11] MEDS ORDERED: carisoprodoL 350 MG TAB PO ONE (21:10)
[2023-01-12] MEDS: PERCOCET 5MG/325MG TAB PO PRN (04:15)
[2023-01-12] MEDS: LEVOTHYROXINE 137MCG TABLET (0.137MG) PO SCH (06:15)
[2023-01-12] MEDS: HEPARIN SOD (PORCINE) 5000UNITS/ML 1ML VIAL/SYRINGE SQ SCH ×2 (06:15→14:10)
[2023-01-12 06:25] VITALS: BP 163/72
[2023-01-12] MEDS ORDERED: ONDANSETRON 4MG ORAL DISINTEGRATING TAB SL PRN (07:40)
[2023-01-12 09:43] VITALS: BP 163/86
[2023-01-12] MEDS: DOCUSATE SODIUM 100MG CAPSULE PO SCH (09:43)
[2023-01-12] MEDS: ASPIRIN 81MG ENTERIC TABLET PO SCH (09:43)
[2023-01-12] MEDS: VITAMIN D 1,000 INTERNATIONAL UNITS TABLET PO SCH (09:43)
[2023-01-12] MEDS: MIRALAX *UNIT DOSE* 17GM PACKET PO SCH ×2 (09:43→14:11)
[2023-01-12 14:00] VITALS: BP 165/86
[2023-01-12] MEDS: ACETAMINOPHEN TAB 650MG DOSE (2X325MG) PO PRN (15:49)
[2023-01-12] MEDS ORDERED: PERCOCET 5MG/325MG TAB PO PRN (16:15)
[2023-01-12] MEDS ORDERED: IBUPROFEN 400MG TAB PO PRN (16:15)
[2023-01-12] MEDS ORDERED: IBUPROFEN 800 MG TAB PO PRN (16:25)
[2023-01-12] MEDS ORDERED: IBUP-1114 PO (18:45)
[2023-01-12] MEDS ORDERED: ONDA4TAB6 SL (18:45)
[2023-01-12] MEDS ORDERED: POLY510P14 PO (18:45)
[2023-01-12] MEDS ORDERED: COLA100C5 PO (18:45)
[2023-01-12] MEDS ORDERED: PERCOCET PO (18:47)
[2023-01-12] MEDS ORDERED: ACETAMINOPHEN TAB 650MG DOSE (2X325MG) PO SCH (21:00)
== END 2023-01-12 20:30 | disposition home or self-care (01) | DRG 493 ==
LOC: M ED 19:13 → EDBD 19:13 → M ED INP 23:35 → M MS5PR 01-08 00:50
PROVIDERS: ADMIT Internal Medicine; ATTEND Student in an Organized Health Care Education/Training Program
PROC: 0PSK04Z Reposition Right Ulna with Internal Fixation Device, Open Approach (ICD-10-PCS; 2023-01-09)
PROC: 0PSG04Z Reposition Left Humeral Shaft with Internal Fixation Device, Open Approach (ICD-10-PCS; principal; 2023-01-10 12:00)
DX: S52.601A Unspecified fracture of lower end of right ulna, initial encounter for closed fracture (principal); S42.202A Unspecified fracture of upper end of left humerus, initial encounter for closed fracture; E55.9 Vitamin D deficiency, unspecified; E03.9 Hypothyroidism, unspecified; K59.00 Constipation, unspecified; D72.829 Elevated white blood cell count, unspecified; W18.09XA Striking against other object with subsequent fall, initial encounter; Y92.009 Unspecified place in unspecified non-institutional (private) residence as the place of occurrence of the external cause; Z79.899 Other long term (current) drug therapy; Z79.82 Long term (current) use of aspirin

== ENCOUNTER → 2023-01-17 | Outpatient (CLI) | payer OTHER ==
[~2023-01-17] MED LIST changes: +ACET1TAB55 PO; +AMLO1TAB25 PO; +ASPI81TAEC PO; +COLA100C5 PO; +IBUP-1114 PO; +ONDA4TAB6 SL; +PERCOCET PO; +POLY510P14 PO; +VITAD1000T PO; +ZYRT10TA12 PO
== END ==
LOC: M SOG 14:55
PROVIDERS: ATTEND Physician Assistant
DX: Z47.89 Encounter for other orthopedic aftercare (principal); Z96.611 Presence of right artificial shoulder joint

== ENCOUNTER → 2023-01-24 | Outpatient (CLI) | payer OTHER ==
[2023-01-24 17:28] LABS: CALCIUM LEVEL 9.8 MG/DL (8.5-10.1)
[2023-01-24 17:34] LABS: TOTAL 25(OH) VITAMIN D 41.4 NG/ML (20.0-100.0)
== END ==
LOC: M PLALAB 14:47
PROVIDERS: ATTEND Family Medicine
DX: E55.9 Vitamin D deficiency, unspecified (principal)

== ENCOUNTER → 2023-02-03 | Outpatient (CLI) | payer OTHER | LOC: M SOG 08:56 | PROVIDERS: ATTEND Physician Assistant | DX: S42.202D Unspecified fracture of upper end of left humerus, subsequent encounter for fracture with routine healing (principal); S52.271D Monteggia's fracture of right ulna, subsequent encounter for closed fracture with routine healing ==

== ENCOUNTER → 2023-02-17 | Outpatient (REF) | payer OTHER | LOC: M LAB REF 17:16 | PROVIDERS: ATTEND Nurse Practitioner Adult Health | DX: R30.0 Dysuria (principal) ==

== ENCOUNTER → 2023-03-10 | Outpatient (CLI) | payer OTHER | LOC: M SOG 08:53 | PROVIDERS: ATTEND Physician Assistant | DX: S42.202A Unspecified fracture of upper end of left humerus, initial encounter for closed fracture (principal); S52.271A Monteggia's fracture of right ulna, initial encounter for closed fracture; X58.XXXA Exposure to other specified factors, initial encounter; Y92.9 Unspecified place or not applicable; Y93.9 Activity, unspecified; Y99.9 Unspecified external cause status ==

== ENCOUNTER → 2023-04-13 | Outpatient (CLI) | payer OTHER | LOC: M RAD 14:53 | PROVIDERS: ATTEND Physician Assistant | DX: R76.11 Nonspecific reaction to tuberculin skin test without active tuberculosis (principal) ==

== ENCOUNTER → 2023-04-15 | Outpatient (CLI) | payer OTHER | LOC: M SOG 11:35 | PROVIDERS: ATTEND Physician Assistant | DX: S42.202A Unspecified fracture of upper end of left humerus, initial encounter for closed fracture (principal); S52.271A Monteggia's fracture of right ulna, initial encounter for closed fracture; Y93.9 Activity, unspecified; Y92.9 Unspecified place or not applicable ==

== ENCOUNTER → 2024-02-09 | Outpatient (CLI) | payer OTHER ==
[~2024-02-09] MED LIST changes: +ONDA-282 SL; -ONDA4TAB6 SL
[2024-02-09 15:53] LABS: BASO # 0.1 10^3/uL (0.0-0.2); BASO % 0.8 % (0.0-1.0); EOS # 0.2 10^3/uL (0.0-0.5); HEMATOCRIT 39.4 % (36.0-47.0); HEMOGLOBIN 13.1 g/dl (12.0-15.5); LYMPH # 2.8 10^3/uL (1.5-5.0); LYMPH % 32.5 % (24.0-44.0); MEAN CORPUSCULAR HEMOGLOBIN 31.7 pg (27.0-33.0); MEAN CORPUSCULAR HGB CONC 33.2 g/dl (32.0-36.5); MEAN CORPUSCULAR VOLUME 95.4 fl (80.0-96.0); MONO # 0.6 10^3/uL (0.0-0.8); MONO % 6.8 % (2.0-8.0); NEUTROPHILS # 4.9 10^3/uL (1.5-8.5); NEUTROPHILS % 57.7 % (36.0-66.0); PLATELET COUNT, AUTOMATED 284 10^3/uL (150-450); RED BLOOD COUNT 4.13 10^6/uL (4.00-5.40); WHITE BLOOD COUNT 8.5 10^3/uL (4.0-10.0)
[2024-02-09 16:25] LABS: ALBUMIN 3.6 G/DL (3.2-5.2); ALKALINE PHOSPHATASE 91 U/L (46-116); ALT/SGPT 18 U/L (7.0-40); AST/SGOT 20 U/L (<34); BILIRUBIN,TOTAL 0.3 MG/DL (0.3-1.2); BLOOD UREA NITROGEN 14 MG/DL (9-23); CARBON DIOXIDE LEVEL 25 MMOL/L (20-31); CHLORIDE LEVEL 106 MMOL/L (98-107); CHOLESTEROL LEVEL 209 MG/DL (<200); CHOLESTEROL RISK RATIO 4.56 (<5); CREATININE FOR GFR 0.52 MG/DL (0.55-1.30); GLOMERULAR FILTRATION RATE > 60.0 (>51); GLUCOSE, FASTING 72 MG/DL (60-100); HDL CHOLESTEROL 45.8 MG/DL (>40); LDL CHOLESTEROL 125.8 MG/DL (<100); MAGNESIUM LEVEL 1.8 MG/DL (1.8-2.4); NON-HDL-C 163.2 MG/DL; POTASSIUM SERUM 4.1 MMOL/L (3.5-5.1); SODIUM LEVEL 137 MMOL/L (136-145); THYROID STIMULATING HORMONE 2.662 uIU/ML (0.55-4.78); TOTAL 25(OH) VITAMIN D 36.8 NG/ML (20.0-100.0); TOTAL PROTEIN 6.5 G/DL (5.7-8.2); TRIGLYCERIDES LEVEL 187 MG/DL (<150)
[2024-02-09 16:26] LABS: FREE T4 1.22 NG/DL (0.89-1.76)
== END ==
LOC: M PLALAB 13:26
PROVIDERS: ATTEND Family Medicine
DX: E03.9 Hypothyroidism, unspecified (principal); E55.9 Vitamin D deficiency, unspecified; E66.9 Obesity, unspecified

== ENCOUNTER → 2024-09-19 | Outpatient (CLI) | payer OTHER ==
[2024-09-19 11:05] LABS: BASO # 0.1 10^3/uL (0.0-0.2); BASO % 0.8 % (0.0-1.0); EOS # 0.2 10^3/uL (0.0-0.5); EOS % 2.6 % (0.0-3.0); HEMATOCRIT 38.7 % (36.0-47.0); HEMOGLOBIN 12.6 g/dl (12.0-15.5); LYMPH # 2.5 10^3/uL (1.5-5.0); LYMPH % 28.9 % (24.0-44.0); MEAN CORPUSCULAR HEMOGLOBIN 30.9 pg (27.0-33.0); MEAN CORPUSCULAR HGB CONC 32.6 g/dl (32.0-36.5); MEAN CORPUSCULAR VOLUME 94.9 fl (80.0-96.0); MONO # 0.6 10^3/uL (0.0-0.8); MONO % 7.5 % (2.0-8.0); NEUTROPHILS # 5.1 10^3/uL (1.5-8.5); NEUTROPHILS % 59.8 % (36.0-66.0); PLATELET COUNT, AUTOMATED 271 10^3/uL (150-450); RED BLOOD COUNT 4.08 10^6/uL (4.00-5.40); WHITE BLOOD COUNT 8.6 10^3/uL (4.0-10.0)
[2024-09-19 11:07] LABS: BLOOD UREA NITROGEN 30 MG/DL (9-23); CALCIUM LEVEL 8.8 MG/DL (8.5-10.1); CARBON DIOXIDE LEVEL 27 MMOL/L (20-31); CHLORIDE LEVEL 107 MMOL/L (98-107); CREATININE FOR GFR 0.62 MG/DL (0.55-1.30); GLOMERULAR FILTRATION RATE > 60.0 (>51); GLUCOSE, FASTING 93 MG/DL (60-100); POTASSIUM SERUM 4.2 MMOL/L (3.5-5.1); SODIUM LEVEL 141 MMOL/L (136-145)
[2024-09-19 11:12] LABS: FREE T4 0.96 NG/DL (0.89-1.76); THYROID STIMULATING HORMONE 3.843 uIU/ML (0.55-4.78)
== END ==
LOC: M PLALAB 08:01
PROVIDERS: ATTEND Nurse Practitioner Adult Health
DX: E03.9 Hypothyroidism, unspecified (principal); E55.9 Vitamin D deficiency, unspecified; E66.9 Obesity, unspecified

== ENCOUNTER → 2025-06-26 | Outpatient (CLI) | payer OTHER ==
[2025-06-26 11:32] LABS: ESTRADIOL < 19.0 PG/ML; LUTEINIZING HORMONE 19.6 mIU/ML
[2025-07-01 14:53] LABS: TESTOSTERONE FREE (DIRECT) 1.4 pg/mL (0.1-6.4); TESTOSTERONE TOTAL FOR T&D 19.0 ng/dL (2-45)
== END ==
LOC: M PLALAB 08:33
PROVIDERS: ATTEND Nurse Practitioner Adult Health
DX: N95.9 Unspecified menopausal and perimenopausal disorder (principal); Z12.11 Encounter for screening for malignant neoplasm of colon